=== PATIENT | female | born 1955 | race Hispanic/Latino ===

== ENCOUNTER 2024-01-02 13:22 | Emergency (ER) | payer OTHER ==
[~2024-01-02] VITALS: Ht 175.3 cm; Wt 90.7 kg
[2024-01-02 13:31] VITALS: TEMP 98.4
[2024-01-02] MEDS ORDERED: KETOROLAC TROMETHAMINE 30 MG/ML VIAL IM STA (13:57)
[2024-01-02 14:30] VITALS: PULSE 70; RESP 18
[2024-01-02] MEDS: HYDROCODONE/APAP 5MG-325MG TAB PO ONE (14:31)
[2024-01-02] MEDS ORDERED: NAPROXEN250 MG PO (15:29)
[2024-01-02 16:23] VITALS: BP 124/80; PULSE 70; RESP 16; TEMP 98.3; O2SAT 100
== END 2024-01-02 16:00 | disposition home or self-care (01) ==
LOC: ER 13:27
DX: M25.562 Pain in left knee (principal); M54.50 Low back pain, unspecified; W18.39XA Other fall on same level, initial encounter; Y92.89 Other specified places as the place of occurrence of the external cause; M06.9 Rheumatoid arthritis, unspecified
CPT/HCPCS: 72100; 99284; J1885